=== PATIENT | female | born 1940 | race Caucasian/White ===

== ENCOUNTER 2024-08-29 08:21 | Outpatient (CLI) | payer OTHER | END 2024-08-29 08:22 | disposition home or self-care (01) | LOC: BICCT 08:21 | PROVIDERS: ATTEND Physician Assistant Medical | DX: R10.32 Left lower quadrant pain (principal) | CPT/HCPCS: 36415; 74177; 82565 ==

== ENCOUNTER 2025-05-08 12:04 | Outpatient (CLI) | payer OTHER | END 2025-05-08 12:05 | disposition home or self-care (01) | LOC: BICMRI 12:04 | PROVIDERS: ATTEND Family Medicine | DX: M54.32 Sciatica, left side (principal); M48.061 Spinal stenosis, lumbar region without neurogenic claudication; M48.07 Spinal stenosis, lumbosacral region | CPT/HCPCS: 72148 ==